=== PATIENT | male | born 1960 | race Caucasian/White ===

== ENCOUNTER 2021-06-24 10:27 | Outpatient (CLI) | payer MEDICARE ==
[2021-06-24 19:25] LABS: SARS-CoV-2 PCR by NAA Not Detected (NotDetected)
== END 2021-06-24 10:28 | disposition home or self-care (01) ==
LOC: CSHLAB 10:27
PROVIDERS: ATTEND Internal Medicine Cardiovascular Disease
DX: Z20.822 Contact with and (suspected) exposure to COVID-19 (principal); I50.22 Chronic systolic (congestive) heart failure; I42.0 Dilated cardiomyopathy; I25.5 Ischemic cardiomyopathy; Z95.810 Presence of automatic (implantable) cardiac defibrillator; I47.2 Ventricular tachycardia; E05.90 Thyrotoxicosis, unspecified without thyrotoxic crisis or storm; I48.19 Other persistent atrial fibrillation
CPT/HCPCS: U0003; U0005